=== PATIENT | female | born 1955 | race Native Hawaiian/Other Pacific Islander ===

== ENCOUNTER 2018-01-11 21:02 | Emergency (ER) | payer OTHER ==
[~2018-01-11] VITALS: Ht 157.5 cm; Wt 79.4 kg
[2018-01-11 21:38] LABS: PLATELET COUNT 319 K/uL (152-353)
[2018-01-11 21:51] LABS: POTASSIUM 3.5 mmol/L (3.6-5.2); SODIUM 140 mmol/L (136-145)
[2018-01-11 22:57] VITALS: BP 141/86; TEMP 97.7
== END 2018-01-11 22:58 | disposition home or self-care (01) ==
LOC: ED 21:02
DX: R07.89 Other chest pain (principal)
CPT/HCPCS: 36415; 80053; 81000; 82150; 82550; 82553; 83690; 84484; 85027; 86318; 93005; 99283